=== PATIENT | male | born 1980 | race Caucasian/White ===

== ENCOUNTER 2023-08-20 06:46 | Emergency (ER) | payer OTHER, SELFPAY ==
[2023-08-20 07:01] VITALS: BP 168/102
[2023-08-20] MEDS: LIDOCAINE 4% PATCH 1 PATCH TOPICAL (07:29)
[2023-08-20] MEDS: TORADOL 30 MG IM (07:30)
--- NOTE | 2023-08-20 08:02 | ED.GENMED ---
History of Present Illness
General
Chief Complaint: Fall
Source: patient
Exam Limitations: none
Time Seen by Provider: 08/20/23 07:15
Nursing documentation reviewed up to this point in time: agreed with
Travel History
Have you had any contact with someone who has COVID-19?: No
Do you have any symptoms of coronavirus? Fever > 100 degrees, chills, cough, shortness of breath, sore throat, loss of taste or smell, muscle aches, or headache?: No
History of Present Illness
History of Present Illness:
Patient is a 43-year-old male who slipped on the ice yesterday landing on his low back. He denies hitting his head. He does complain of pain to his lumbar region. He has taken Tylenol which has not relieved his symptoms. He denies hitting his
head. He denies any neck pain. He denies any radiation to lower extremities. He denies any incontinence of bowel or bladder.
Past History
Past History
ED Past Medical History: Other (Back pain and kidney stones)
ED Past Surgical History: None
Social History
Tobacco: Non-smoker
Drug: None
Personal: Single
Living: other (Lives at the [facility])
Employment: Employed
Review of Systems
Review of Systems
Allergies reviewed?: Yes
All Other Systems: ROS reviewed and negative except as documented in HPI and ROS
Constitutional: Reports no symptoms; Denies fever, fatigue or chills
EENT: Reports no symptoms
Respiratory: Reports no symptoms
ABD/GI: Reports no symptoms
Musculoskeletal: Reports back pain
Skin: Reports no symptoms
Neurological: Reports no symptoms and other (Denies hitting head.); Denies headache
Psychiatric: Reports no symptoms
Phy Exam
General Physical Exam
General Presentation: no apparent distress
General age: appears stated age
General Skin: warm and dry
General Habitus: normal
General Mental: alert
General Hydration: appears well hydrated
Neurological Exam
Neurological Exam: alert and oriented x3
Musculoskeletal Exam
Musculoskeletal Exam: other (Normal inspection to lumbar tube backer to the midline lower lumbar region)
Skin Exam
Skin Exam: normal color and warm/dry
Psychiatric Exam
Psychiatric Exam: normal mood/affect
Course
Orders/Labs/Results
Orders:
Orders
08/20/23 07:25
Ketorolac [Toradol] 30 mg IM NOW STA
Lidocaine [Lidocaine 4% Patch] 1 patch TOPICAL NOW STA
08/20/23 07:26
Lumbar Spine Complete, 4 View [CR Lumbar Spine Comp Min 4 Vw*] Urgent
Comment:
Reason For Exam: trauma
Vital Signs
Initial and Last Documented VS:
Initial Vital Signs
Temp Pulse Resp BP Pulse Ox
97.9 F 89 16 168/102 100
08/20/23 07:01 08/20/23 07:01 08/20/23 07:01 08/20/23 07:01 08/20/23 07:01
Last Documented Vital Signs
Temp Pulse Resp BP Pulse Ox
97.9 F 89 16 168/102 100
08/20/23 07:01 08/20/23 07:01 08/20/23 07:01 08/20/23 07:01 08/20/23 07:01
Bingo Manager consulted with Physician
Bingo Manager consulted with physician?: Yes
Name of Physician Consulted: stephen
MDM/Problems Addressed
Differential Diagnosis Includes:
Not limited to lumbar compression fracture, contusion, sprain strain
MDM/Problems Addressed:
Patient fell landed on his back yesterday. Patient complains of low back pain with no radiation. He is in no acute distress was given IM Toradol here with slight improvement. No acute findings on x-ray will DC with Flexeril lidocaine patches
ibuprofen and close outpatient follow-up
*Radiology
Radiology exam reviewed: radiology read reviewed
*Pulse Oximetry
Patient hypoxic: no
*Critical Care Note
Total Time (30-74mins, 75-104mins- exclusive of procedures): Not Applicable
ED Attending Note
-
Portions of this chart may have been created with voice recognition software.� Occasional wrong word or��sound alike� substitutions may have occurred due to the inherent limitations of voice recognition software.
Discharge Plan
Departure
Patient Disposition: Home (Routine Discharge)
Date of Disposition: 08/20/23
Time of Disposition: 09:19
Patient with high blood pressure during this ER visit?: Yes
Discharge Problem:
Lumbar strain
Instructions: Back Muscle Strain (DC), BLOOD PRESSURE
Prescriptions:
New
cyclobenzaprine 10 mg tablet
10 mg PO TID PRN (Reason: muscle spasm) Qty: 10 0RF
lidocaine 5 % adhesive patch,medicated
1 patch topical DAILY Qty: 15 0RF
Rx Instructions:
Remove after 12 hours
No Action
cyclobenzaprine 5 MG tablet
5 mg PO TID Qty: 15 0RF
Referrals:
UNKNOWN - PT DOES,NOT KNOW [Family Provider] -
Activity Restrictions/Additional Instructions:
Ice the affected area for 24 hours 20 instead time several times a day followed by warm moist heat.
Ibuprofen 600 mg every with food. A prescription for Flexeril 10 mg was sent to her pharmacy take as directed. This will cause drowsiness no driving or drinking alcohol while on medication. A prescription for lidocaine patch was also sent to
pharmacy use as directed to low back. remove after 12 hours. Follow-up with your family doctor in the next several days return if any worsening of symptoms
Interventions
Interventions:
*Risk Screen - Suicide Last Done: 08/20/23 07:01
*General Assessment Last Done: 08/20/23 07:01
*Neglect/Abuse Screening Last Done: 08/20/23 07:01
*ED COVID-19 Vaccine History Last Done: 08/20/23 07:01
ED-Musculoskeletal Assessment Last Done: 08/20/23 07:24
ED- Neurological Assessment Last Done: 08/20/23 07:24
ED-Skin Assessment Last Done: 08/20/23 07:24
[2023-08-20 09:22] VITALS: BP 160/90
== END 2023-08-20 09:28 | disposition home or self-care (01) ==
LOC: EMR 06:46
PROVIDERS: EMERGENCY PHYSICIAN Student in an Organized Health Care Education/Training Program
DX: S39.012A Strain of muscle, fascia and tendon of lower back, initial encounter (principal); W00.0XXA Fall on same level due to ice and snow, initial encounter; M54.9 Dorsalgia, unspecified
CPT/HCPCS: 99284; 96372; 72110

== ENCOUNTER 2023-09-25 08:20 | Emergency (ER) | payer OTHER, SELFPAY ==
[2023-09-25 08:24] VITALS: BP 174/111
--- NOTE | 2023-09-25 09:13 | ED.GENMED ---
History of Present Illness
General
Chief Complaint: Back Pain
Source: patient
Time Seen by Provider: 09/25/23 08:55
Travel History
Have you had any contact with someone who has COVID-19?: No
Do you have any symptoms of coronavirus? Fever > 100 degrees, chills, cough, shortness of breath, sore throat, loss of taste or smell, muscle aches, or headache?: No
History of Present Illness
History of Present Illness:
43-year-old male presenting to the the emergency department after being evaluated around 4 weeks ago for progressively worsening right-sided lower back pain stating that he did initially have some relief with the medication that was prescribed to
him noting a muscle relaxant and ibuprofen but states that the pain is now radiating down his right leg similar to when he needed previous disc hernia surgery with Dr. Tyson about 10 years ago. Patient denies any other neurologic symptoms including
bowel or urinary incontinence, saddle anesthesias, focal numbness or any infectious symptoms including fevers, urinary symptoms or bowel changes. Patient has no other concerns at this time.
Past History
Past History
ED Past Medical History: Other (Back pain and kidney stones)
ED Past Surgical History: Orthopedic
Social History
Tobacco: Non-smoker
Alcohol: None
Drug: None
Personal: Single
Living: other (Lives at the [facility])
Employment: Employed
Review of Systems
Review of Systems
All Other Systems: ROS reviewed and negative except as documented in HPI and ROS
Phy Exam
Physical Exam
Physical Exam:
GENERAL: Alert , in no apparent distress at rest but appears quite uncomfortable with attempted movement
EYE: clear conjunctiva b/l
NECK: Supple
ENT: o/p clr, mmm.
ABDOMEN: Soft, without focal tenderness, no r/g, no cvat
BACK: Limited range of motion and when standing up unable to fully extend at the pelvis secondary to pain, reproducible right paralumbar tenderness, no midline bony tenderness, no rashes
NEUROLOGICAL: Alert and oriented, no focal neuro deficits. Patellar deep tendon reflexes intact and equal bilaterally, sensation grossly intact and equal to light touch bilateral lower extremities
SKIN: Warm and dry, skin intact.
MUSCULOSKELETAL: No edema, well perfused. EHL intact bilaterally
PSYCH: Normal and appropriate interaction.
Scores
Heart Failure Risk
Heart Failure Risk Score: Not Applicable
Heart Score for Chest Pain Patients
STEMI patient?: Not applicable
Withdrawal Assessment of Alcohol
Withdrawal Assessment Completed?: Not applicable
Course
Orders/Labs/Results
Orders:
Orders
09/25/23 09:12
Dexamethasone Sod Phosphate [Decadron] 10 mg IM NOW STA
Ketorolac [Toradol] 30 mg IM NOW STA
Vital Signs
Initial and Last Documented VS:
Initial Vital Signs
Temp Pulse Resp BP Pulse Ox
98.8 F 97 17 174/111 99
09/25/23 08:24 09/25/23 08:24 09/25/23 08:24 09/25/23 08:24 09/25/23 08:24
Last Documented Vital Signs
Temp Pulse Resp BP Pulse Ox
98.8 F 80 18 188/98 99
09/25/23 08:24 09/25/23 11:03 09/25/23 11:03 09/25/23 11:03 09/25/23 11:03
MDM/Problems Addressed
Differential Diagnosis Includes:
Disc herniation, nerve impingement, radiculopathy, spinal stenosis. I do not have concern for acute cauda equina nor infectious etiology
MDM/Problems Addressed:
43-year-old male presenting back to the emergency department for evaluation of worsening right-sided lower back pain, now with radicular symptoms that have been worsening despite medications. I discussed management with the patient through the ER
which could include different medications including muscle relaxant, steroid taper and close outpatient follow-up. At this time I do not believe patient's previous back surgeon is currently practicing so we will provide him with information for
pain management in a different back specialist for follow-up. Patient advised on return precautions emergency department but will otherwise be stable for discharge pending medication administration. Patient was advised about his elevated blood
pressure here.
*Pulse Oximetry
Patient hypoxic: no
*Critical Care Note
Total Time (30-74mins, 75-104mins- exclusive of procedures): Not Applicable
Data Reviewed
Review of Other/Old Records Reveals: Records and Radiology Studies
Source: patient
Further Testing Considered But Not Given:
Patient had already had an x-ray here 4 weeks ago which showed degenerative disc disease worse at L3-L5. Patient is not exhibiting any acute neurologic symptoms that would warrant emergent MRI
Patient Management
Escalation/DeEscalation of care consider admission/obs:
Patient pain is improving with medication. He is otherwise stable for discharge home and continued outpatient management.
ED Attending Note
-
Portions of this chart may have been created with voice recognition software.� Occasional wrong word or��sound alike� substitutions may have occurred due to the inherent limitations of voice recognition software.
Discharge Plan
Departure
Patient Disposition: Home (Routine Discharge)
Date of Disposition: 09/25/23
Time of Disposition: 10:53
Patient with high blood pressure during this ER visit?: Yes
Discharge Problem:
Low back pain, Lumbar radiculopathy
Instructions: Radiculopathy (DC)
Prescriptions:
New
methylprednisolone [Medrol (Geovanny)] 4 mg tablets,dose pack
4 mg PO DIRECTED Qty: 21 0RF
diazepam [Valium] 5 mg tablet
5 mg PO BID PRN (Reason: muscle spasm) Qty: 8 0RF
No Action
cyclobenzaprine 5 MG tablet
5 mg PO TID Qty: 15 0RF
cyclobenzaprine 10 mg tablet
10 mg PO TID PRN (Reason: muscle spasm) Qty: 10 0RF
lidocaine 5 % adhesive patch,medicated
1 patch topical DAILY Qty: 15 0RF
Rx Instructions:
Remove after 12 hours
Referrals:
Gee Stacy MD [Active] - (Pain Management)
Jannette Stoll DO [Active] - (Please call for appointment)
Jeremiah Del Toro DO [Family Provider] -
Interventions
Interventions:
*ED COVID-19 Vaccine History Last Done: 09/25/23 08:28
*Nursing Disposition Last Done: 09/25/23 11:06
ED-Musculoskeletal Assessment Last Done: 09/25/23 09:27
Discharge Date and Time
Discharge Date/Time: 09/25/23 11:07
[2023-09-25] MEDS: DECADRON 10 MG IM (09:21)
[2023-09-25] MEDS: TORADOL 30 MG IM (09:21)
[2023-09-25 11:03] VITALS: BP 188/98
== END 2023-09-25 11:07 | disposition home or self-care (01) ==
LOC: EMR 08:20
PROVIDERS: EMERGENCY PHYSICIAN Student in an Organized Health Care Education/Training Program; FAMILY PHYSICIAN Family Medicine
DX: M54.16 Radiculopathy, lumbar region (principal); M54.50 Low back pain, unspecified; R03.0 Elevated blood-pressure reading, without diagnosis of hypertension; M51.35 Other intervertebral disc degeneration, thoracolumbar region; Z87.442 Personal history of urinary calculi
CPT/HCPCS: 99284; 96372 ×2

== ENCOUNTER 2024-03-22 17:59 | Emergency (ER) | payer OTHER, SELFPAY ==
[2024-03-22 18:04] VITALS: BP 184/11
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
[2024-03-22 19:56] VITALS: BMI 32.3
[2024-03-22 19:58] LABS: % Basophils 0.6 % (0-2); % Eosinophils 0.5 % (0-6); % Immature Granulocytes 0.6 % (0-0.5); % Lymphocytes 13.7 % (20.5-51.1); % Monocytes 9.7 % (1.7-9.3); % Neutrophils 74.9 % (42.2-75.2); Absolute Basophils 0.1 10^3/uL (0-0.2); Absolute Eosinophils 0.1 10^3/uL (0-0.7); Absolute Immature Granulocytes 0.1 10^3/uL (0-0.05); Absolute Lymphocytes 1.7 10^3/uL (1.2-3.4); Absolute Monocytes 1.2 10^3/uL (0.1-0.6); Absolute Neutrophils 9.4 10^3/uL (1.4-6.5); Hematocrit 41.7 % (39.0-52.0); Hemoglobin 14.5 g/dL (13.0-18.0); Mean Corp Hgb Conc. 34.8 g/dL (33.0-37.0); Mean Corpuscular Hgb 30.1 pg (27.0-31.0); Mean Corpuscular Volume 86.5 fL (80.0-94.0); Mean Platelet Volume 9.2 fL (7.4-10.4); Nucleated Red Blood Cells % 0 % (-); Platelet Count 309 10^3/uL (130-400); Red Blood Cell Count 4.82 10^6/uL (4.70-6.10); Red Cell Dist. Width 12.6 % (11.5-14.5); White Blood Cell Count 12.5 10^3/uL (4.8-10.8)
[2024-03-22 20:24] VITALS: BP 157/90
[2024-03-22] MEDS: ADACEL 0.5 ML IM (20:59)
[2024-03-22 21:28] LABS: Blood Urea Nitrogen 21 mg/dl (9-20); Estimated Creatinine Clearance > 125 ml/min; Glucose 134 mg/dl (70-99); Sodium 147 mmol/L (135-145); eGFR > 60.00
[2024-03-22 21:29] LABS: ALT (SGPT) 37 U/L (0-50); AST (SGOT) 33 U/L (17-59); Albumin 4.9 g/dl (3.5-5.0); Alkaline Phosphatase 78 U/L (38-126); Calcium 9.6 mg/dl (8.4-10.2); Carbon Dioxide 27 mmol/L (22-30); Chloride 107 mmol/L (98-107); Lipase 96 U/L (23-300); Potassium 4.7 mmol/L (3.5-5.1); Total Bilirubin 0.3 mg/dl (0.2-1.3); Total Protein 8.2 g/dl (6.3-8.2)
[2024-03-22 21:37] VITALS: BP 142/97
== END 2024-03-22 21:39 | disposition home or self-care (01) ==
LOC: EMR 17:59
PROVIDERS: EMERGENCY PHYSICIAN Emergency Medicine; FAMILY PHYSICIAN Family Medicine
DX: H91.92 Unspecified hearing loss, left ear (principal); H92.02 Otalgia, left ear; S90.811A Abrasion, right foot, initial encounter; V49.40XA Driver injured in collision with unspecified motor vehicles in traffic accident, initial encounter; Y92.410 Unspecified street and highway as the place of occurrence of the external cause; Z23 Encounter for immunization; Z87.442 Personal history of urinary calculi; R03.0 Elevated blood-pressure reading, without diagnosis of hypertension
CPT/HCPCS: 99285; 90471; 70450; 71260; 72125; 74177; 80053; 83690; 85025; 90715; Q9967

== ENCOUNTER → 2025-03-05 09:44 | Outpatient (REF) | payer OTHER, SELFPAY | LOC: HWRAD 09:44 | PROVIDERS: ATTENDING PHYSICIAN Nurse Practitioner Family | DX: M25.561 Pain in right knee (principal) | CPT/HCPCS: 73564 ==

== ENCOUNTER → 2025-05-06 20:30 | Outpatient (REF) | payer OTHER, SELFPAY | LOC: MRI 20:30 | PROVIDERS: ATTENDING PHYSICIAN Physician Assistant; FAMILY PHYSICIAN Family Medicine | DX: M25.561 Pain in right knee (principal) | CPT/HCPCS: 73721 ==